=== PATIENT | male | born 1975 | race Native Hawaiian/Other Pacific Islander ===

== ENCOUNTER 2020-02-08 15:57 | Inpatient (IN) | payer MEDICAID ==
[~2020-02-08] VITALS: Ht 185.4 cm; Wt 199.3 kg
[2020-02-08] MEDS ORDERED: cloNIDine HCL 0.1 MG TAB PO ONE (16:30)
[2020-02-08 16:57] LABS: Basophils # (auto) 0.1 10 ^3/uL (0-0.2); Hemoglobin 12.2 g/dL (13.5-17.5); Lymphocytes % (auto) 19.1 % (10.0-50.0); Monocytes # (auto) 0.9 10 ^3/uL (0-1.3); Neutrophils # (auto) 7.4 10 ^3/uL (1.6-8.6); Nucleated Red Blood Cells % 0.1 %; Red Cell Distribution Width 15.5 % (11.8-14.3); White Blood Cell 10.6 10^3/uL (4.4-10.8)
[2020-02-08 16:59] LABS: Eosinophils # (auto) 0.2 10 ^3/uL (0-0.8); Eosinophils % (auto) 2.3 % (0.0-7.0); Hematocrit 37.8 % (41.0-53.0); Mean Corpuscular Hemoglobin 28.4 pg (28.0-32.0); Mean Corpuscular Hgb Conc. 32.4 g/dL (32.0-36.0); Mean Corpuscular Volume 87.8 fL (80.0-100.0); Monocytes % (auto) 8.2 % (0.0-12.0); Neutrophils % (auto) 69.4 % (37.0-80.0); Platelet Count (auto) 401 10^3/uL (140-450); Red Blood Cells 4.31 10^6/uL (4.5-5.90)
[2020-02-08 17:15] LABS: Albumin 1.5 g/dL (3.4-5.0); Calcium 7.5 mg/dL (8.5-10.1)
[2020-02-08 17:22] LABS: BUN/Creatinine Ratio 5.9; Bilirubin, Total 0.4 mg/dL (0.2-1.0); Total Protein 6.3 g/dL (6.4-8.2)
[2020-02-08] MEDS ORDERED: FUROSEMIDE 40 MG/4 ML VIAL IV ONE (17:45)
[2020-02-08] MEDS ORDERED: DOCUSATE SOD 100 MG CAP PO PRN (21:45)
[2020-02-08] MEDS ORDERED: MORPHINE SULF INJ 2 MG/ML SYRINGE 1ML IV PRN (21:45)
[2020-02-08] MEDS ORDERED: MORPHINE SULFATE 4 MG/ML SYR/VIAL IV PRN (21:45)
[2020-02-08] MEDS ORDERED: ONDANSETRON HCL 4 MG/2 ML VIAL IV PRN (21:45)
[2020-02-08] MEDS ORDERED: NITROGLYCERIN 0.4 MG SL TAB SL PRN (21:45)
[2020-02-08] MEDS ORDERED: ACETAMINOPHEN 325 MG TAB PO PRN (21:45)
[2020-02-08] MEDS ORDERED: CARVEDILOL 3.125 MG TAB PO SCH (22:00)
[2020-02-08] MEDS ORDERED: DEXTROSE (50%) 50ML SYRG IV PRN (22:00)
[2020-02-08] MEDS: SODIUM CHLOR 0.9% PF (SALINE LOCK) 10ML VIAL/SYR IV SCH (22:13)
[2020-02-08] MEDS: ACCU-CHEK COMFORT CURVE STRIP VI SCH (22:13)
[2020-02-08] MEDS: hydrALAZINE HCL 25 MG TAB PO SCH (22:13)
[2020-02-08] MEDS: InsuLIN REG 1unit/0.01ml Soln (100units/ml) SC SCH (22:13)
[2020-02-08 23:30] VITALS: BP 157/92
[2020-02-09] MEDS: ENOXAPARIN SOD 40 MG/0.4 ML SYRINGE SC SCH ×2 (03:40→21:14)
[2020-02-09 05:00] VITALS: BP 154/87
[2020-02-09] MEDS: FUROSEMIDE 40 MG/4 ML VIAL IV SCH ×2 (05:28→17:27)
[2020-02-09] MEDS: hydrALAZINE HCL 25 MG TAB PO SCH ×2 (05:28→21:35)
[2020-02-09] MEDS: SODIUM CHLOR 0.9% PF (SALINE LOCK) 10ML VIAL/SYR IV SCH ×3 (06:23→21:51)
[2020-02-09] MEDS: ACCU-CHEK COMFORT CURVE STRIP VI SCH ×4 (06:24→21:15)
[2020-02-09] MEDS: InsuLIN REG 1unit/0.01ml Soln (100units/ml) SC SCH ×4 (06:24→21:15)
[2020-02-09 06:57] LABS: Basophils # (auto) 0.2 10 ^3/uL (0-0.2); Basophils % (auto) 1.6 % (0.0-2.0); Eosinophils # (auto) 0.5 10 ^3/uL (0-0.8); Eosinophils % (auto) 5.4 % (0.0-7.0); Hematocrit 39.5 % (41.0-53.0); Hemoglobin 12.6 g/dL (13.5-17.5); Lymphocytes # (auto) 2.9 10 ^3/uL (0.4-5.4); Lymphocytes % (auto) 28.4 % (10.0-50.0); Mean Corpuscular Hemoglobin 28.2 pg (28.0-32.0); Mean Corpuscular Hgb Conc. 31.8 g/dL (32.0-36.0); Mean Corpuscular Volume 88.7 fL (80.0-100.0); Monocytes % (auto) 10.2 % (0.0-12.0); Neutrophils # (auto) 5.5 10 ^3/uL (1.6-8.6); Neutrophils % (auto) 54.4 % (37.0-80.0); Nucleated Red Blood Cells % 0.1 %; Platelet Count (auto) 365 10^3/uL (140-450); Red Blood Cells 4.46 10^6/uL (4.5-5.90); Red Cell Distribution Width 15.6 % (11.8-14.3); White Blood Cell 10.1 10^3/uL (4.4-10.8)
[2020-02-09 07:14] LABS: Potassium 3.9 mmol/L (3.5-5.1)
[2020-02-09 07:24] LABS: Albumin 1.6 g/dL (3.4-5.0); BUN/Creatinine Ratio 5.6; Bilirubin, Total 0.5 mg/dL (0.2-1.0); Calcium 7.6 mg/dL (8.5-10.1); Total Protein 6.4 g/dL (6.4-8.2)
[2020-02-09 08:40] VITALS: BP 160/97
[2020-02-09] MEDS: CARVEDILOL 3.125 MG TAB PO SCH ×2 (09:34→17:28)
[2020-02-09] MEDS ORDERED: amLODIPine BESYLATE 5 MG TAB PO SCH (10:00)
[2020-02-09] MEDS ORDERED: PANTOPRAZOLE 40 MG/10 ML VIAL INJ IV SCH (10:00)
[2020-02-09] MEDS ORDERED: ENOXAPARIN SOD 40 MG/0.4 ML SYRINGE SC SCH (10:00)
[2020-02-09] MEDS ORDERED: OPTISON 3ml Vial for INJ IV ONE (11:55)
[2020-02-09 13:00] VITALS: BP 149/85
[2020-02-09] MEDS ORDERED: hydrALAZINE HCL 25 MG TAB PO SCH (14:00)
[2020-02-09 14:47] LABS: Alcohol, Urine < 3.0 mg/dL (0-10); Amphetamine Screen, Urine NEGATIVE (NEGATIVE); Barbiturate Scree,Urine NEGATIVE (NEGATIVE); Benzodiazephine Screen, Urine NEGATIVE (NEGATIVE); Cannabinoid Screen, Urine NEGATIVE (NEGATIVE); Cocaine Screen, Urine NEGATIVE (NEGATIVE); Opiate Scree,Urine NEGATIVE (NEGATIVE); Phencyclidine Screen, Urine NEGATIVE (NEGATIVE)
[2020-02-09 16:20] LABS: Phosphorus 4.5 mg/dL (2.5-4.90); Uric Acid 9.2 mg/dL (3.5-7.2)
[2020-02-09 16:22] LABS: Urine Bacteria FEW /hpf (None Seen); Urine Blood 2+ /uL (Negative); Urine WBC 1 /hpf (0 - 3)
[2020-02-09 16:25] LABS: Protein, Urine 491.4 mg/dL (0.0-11.9)
[2020-02-09 16:44] VITALS: BP 158/100
[2020-02-09 22:00] VITALS: BP 140/97
[2020-02-10 05:00] VITALS: BP 159/95
[2020-02-10] MEDS: hydrALAZINE HCL 25 MG TAB PO SCH ×2 (05:38→12:08)
[2020-02-10] MEDS: FUROSEMIDE 40 MG/4 ML VIAL IV SCH (05:38)
[2020-02-10] MEDS: InsuLIN REG 1unit/0.01ml Soln (100units/ml) SC SCH ×2 (06:03→11:06)
[2020-02-10] MEDS: ACCU-CHEK COMFORT CURVE STRIP VI SCH ×2 (06:03→11:06)
[2020-02-10] MEDS: SODIUM CHLOR 0.9% PF (SALINE LOCK) 10ML VIAL/SYR IV SCH ×2 (06:03→11:06)
[2020-02-10 06:43] LABS: Basophils # (auto) 0.1 10 ^3/uL (0-0.2); Basophils % (auto) 1.6 % (0.0-2.0); Eosinophils # (auto) 0.6 10 ^3/uL (0-0.8); Eosinophils % (auto) 6.4 % (0.0-7.0); Hematocrit 39.7 % (41.0-53.0); Hemoglobin 12.6 g/dL (13.5-17.5); Lymphocytes # (auto) 2.3 10 ^3/uL (0.4-5.4); Lymphocytes % (auto) 25.7 % (10.0-50.0); Mean Corpuscular Hgb Conc. 31.7 g/dL (32.0-36.0); Mean Corpuscular Volume 88.3 fL (80.0-100.0); Monocytes # (auto) 0.9 10 ^3/uL (0-1.3); Monocytes % (auto) 9.8 % (0.0-12.0); Neutrophils % (auto) 56.5 % (37.0-80.0); Nucleated Red Blood Cells % 0.2 %; Platelet Count (auto) 399 10^3/uL (140-450); Red Cell Distribution Width 15.9 % (11.8-14.3); White Blood Cell 8.8 10^3/uL (4.4-10.8)
[2020-02-10 07:03] LABS: Calcium 7.4 mg/dL (8.5-10.1)
[2020-02-10 07:10] LABS: Albumin 1.6 g/dL (3.4-5.0); BUN/Creatinine Ratio 5.8; Bilirubin, Total 0.4 mg/dL (0.2-1.0); Magnesium 2.2 mg/dL (1.6-2.6); Total Protein 6.6 g/dL (6.4-8.2)
[2020-02-10 09:00] VITALS: BP 151/87
[2020-02-10] MEDS: CARVEDILOL 3.125 MG TAB PO SCH (09:17)
[2020-02-10] MEDS: ENOXAPARIN SOD 40 MG/0.4 ML SYRINGE SC SCH (09:18)
[2020-02-10] MEDS ORDERED: PANTOPRAZOLE 40 MG TAB PO SCH (10:00)
[2020-02-10 13:00] VITALS: BP 174/88
[2020-02-10 13:51] VITALS: BP 148/87
[2020-02-13 08:06] LABS: Immunoglobulin G, Serum 1659 mg/dL (603-1613)
== END 2020-02-10 15:35 | disposition home or self-care (01) | DRG 194 ==
LOC: ER 15:57 → TELE 15:58 → TELE-WESTW 23:25
PROVIDERS: ADMIT Nurse Practitioner Family; ATTEND Internal Medicine
DX: I13.0 Hypertensive heart and chronic kidney disease with heart failure and stage 1 through stage 4 chronic kidney disease, or unspecified chronic kidney disease (principal); N17.0 Acute kidney failure with tubular necrosis; I50.33 Acute on chronic diastolic (congestive) heart failure; E66.01 Morbid (severe) obesity due to excess calories; Z68.43 Body mass index [BMI] 50.0-59.9, adult; E11.65 Type 2 diabetes mellitus with hyperglycemia; D63.1 Anemia in chronic kidney disease; E11.22 Type 2 diabetes mellitus with diabetic chronic kidney disease; F12.90 Cannabis use, unspecified, uncomplicated; F32.9 Major depressive disorder, single episode, unspecified; I16.1 Hypertensive emergency; R06.03 Acute respiratory distress; N18.9 Chronic kidney disease, unspecified; E88.09 Other disorders of plasma-protein metabolism, not elsewhere classified; Z79.4 Long term (current) use of insulin; Z87.891 Personal history of nicotine dependence; Z80.9 Family history of malignant neoplasm, unspecified; Z82.49 Family history of ischemic heart disease and other diseases of the circulatory system; Z83.3 Family history of diabetes mellitus; Z91.14 Patient's other noncompliance with medication regimen; Z91.19 Patient's noncompliance with other medical treatment and regimen; Z79.899 Other long term (current) drug therapy
CPT/HCPCS: 36415; 71045; 76775; 80053; 80061; 80307; 81001; 82306; 82570; 82784; 82962; 83036; 83735; 83880; 83970; 84100; 84156; 84300; 84443; 84484; 84550; 85025; 86334; 86335; 93005; 93306; 96374; 99291; C9113; G0378; Q9956

== ENCOUNTER 2020-03-01 03:30 | Inpatient (IN) | payer MEDICAID ==
[~2020-03-01] VITALS: Ht 182.9 cm; Wt 180.0 kg
[2020-03-01 04:38] LABS: Basophils # (auto) 0 10 ^3/uL (0-0.2); Basophils % (auto) 0.3 % (0.0-2.0); Eosinophils # (auto) 0 10 ^3/uL (0-0.8); Eosinophils % (auto) 0.1 % (0.0-7.0); Lymphocytes # (auto) 2.1 10 ^3/uL (0.4-5.4); Lymphocytes % (auto) 28.5 % (10.0-50.0); Mean Corpuscular Hemoglobin 27.6 pg (28.0-32.0); Mean Corpuscular Hgb Conc. 32.1 g/dL (32.0-36.0); Mean Corpuscular Volume 85.9 fL (80.0-100.0); Monocytes # (auto) 0.6 10 ^3/uL (0-1.3); Monocytes % (auto) 8.5 % (0.0-12.0); Neutrophils # (auto) 4.7 10 ^3/uL (1.6-8.6); Neutrophils % (auto) 62.6 % (37.0-80.0); Nucleated Red Blood Cells % 0.2 %; Platelet Count (auto) 232 10^3/uL (140-450); Red Blood Cells 3.61 10^6/uL (4.5-5.90); Red Cell Distribution Width 14.9 % (11.8-14.3); White Blood Cell 7.4 10^3/uL (4.4-10.8)
[2020-03-01] MEDS ORDERED: methylPREDNISolone SOD SUCC 125 MG/2 ML VL IV ONE (04:45)
[2020-03-01 04:54] LABS: INR 1.07 (0.9-1.15); Partial Thromboplastin Time 37.3 sec (23.0-31.2)
[2020-03-01 05:02] LABS: Albumin 1.5 g/dL (3.4-5.0)
[2020-03-01 05:04] LABS: BUN/Creatinine Ratio 12.5
[2020-03-01 05:09] LABS: Bilirubin, Total 0.5 mg/dL (0.2-1.0); Total Protein 6.1 g/dL (6.4-8.2)
[2020-03-01] MEDS ORDERED: SODIUM ZIRCONIUM CYCL 10 GM PAK PO ONE ×2 (05:30→16:00)
[2020-03-01] MEDS ORDERED: InsuLIN REG 1unit/0.01ml Soln (100units/ml) IV ONE ×2 (05:30→16:00)
[2020-03-01] MEDS ORDERED: SODIUM BICARBONATE 8.4 % INJ 50ML VIAL IV ONE (05:30)
[2020-03-01] MEDS ORDERED: CALCIUM GLUC 4.65meq/50ml D5AE 50 ML IV ONE (05:30)
[2020-03-01] MEDS ORDERED: DEXTROSE (50%) 50ML SYRG IV ONE ×2 (05:30→16:00)
[2020-03-01 10:00] VITALS: BP 148/84
[2020-03-01] MEDS ORDERED: ENOXAPARIN SOD 40 MG/0.4 ML SYRINGE SC SCH ×2 (10:00)
[2020-03-01] MEDS ORDERED: MORPHINE SULF INJ 2 MG/ML SYRINGE 1ML IV PRN ×3 (10:00→16:00)
[2020-03-01] MEDS ORDERED: NITROGLYCERIN 0.4 MG SL TAB SL PRN ×2 (10:00→16:00)
[2020-03-01] MEDS ORDERED: SODIUM CHLORIDE 0.9% 1,000 ML IV SCH (10:00)
[2020-03-01] MEDS ORDERED: ENOXAPARIN SOD 30 MG/0.3 ML SYRINGE SC SCH (10:00)
[2020-03-01] MEDS ORDERED: ACETAMINOPHEN 500 MG TAB PO PRN (10:00)
[2020-03-01] MEDS: DexAMETHasone SOD PHOS 10MG/1ML VIAL INJ IV SCH (10:29)
[2020-03-01] MEDS: ASCORBIC ACID 1,000 MG TAB PO SCH (10:30)
[2020-03-01] MEDS: CHOLECALCIFEROL (VITD3) 2,000 UNIT CAP PO SCH (10:30)
[2020-03-01] MEDS: DOXYCYCLINE 100MG/250ML 250 ML IV SCH ×2 (10:30→23:24)
[2020-03-01] MEDS: ZINC SULFATE 220mg CAP or TAB PO SCH (10:30)
--- NOTE | 2020-03-01 10:58 | NUR ---
Telemetry admit from ER [facility] ANN admitted to Telemetry unit after SBAR received. Patient oriented to REID CHEUNG RN primary RN, unit, room, bed, and unit policies regarding patient care and visiting hours. Patient now on continuous telemetry monitoring, tele box #4 and telemetry reading on arrival to unit is sr with peaked T waves. Patient placed on bedside oxygen, weighed by bedscale and encouraged to call if they need something. All questions and concerns addressed, patient verbalized understanding.
[2020-03-01] MEDS ORDERED: LACTATED RINGER'S 1,000 ML IV ONE (11:00)
[2020-03-01] MEDS ORDERED: ENOXAPARIN SOD 100 MG/1 ML SYRINGE SC ONE (11:00)
[2020-03-01 11:15] LABS: Basophils # (auto) 0 10 ^3/uL (0-0.2); Basophils % (auto) 0.3 % (0.0-2.0); Eosinophils # (auto) 0 10 ^3/uL (0-0.8); Eosinophils % (auto) 0.1 % (0.0-7.0); Hematocrit 30.2 % (41.0-53.0); Hemoglobin 9.7 g/dL (13.5-17.5); Lymphocytes # (auto) 1.2 10 ^3/uL (0.4-5.4); Lymphocytes % (auto) 25.6 % (10.0-50.0); Mean Corpuscular Hemoglobin 27.4 pg (28.0-32.0); Mean Corpuscular Hgb Conc. 32.1 g/dL (32.0-36.0); Mean Corpuscular Volume 85.4 fL (80.0-100.0); Monocytes # (auto) 0.1 10 ^3/uL (0-1.3); Monocytes % (auto) 2.5 % (0.0-12.0); Neutrophils # (auto) 3.4 10 ^3/uL (1.6-8.6); Neutrophils % (auto) 71.5 % (37.0-80.0); Nucleated Red Blood Cells % 0.2 %; Platelet Count (auto) 243 10^3/uL (140-450); Red Blood Cells 3.53 10^6/uL (4.5-5.90); Red Cell Distribution Width 14.4 % (11.8-14.3); White Blood Cell 4.8 10^3/uL (4.4-10.8)
[2020-03-01] MEDS ORDERED: ENOXAPARIN SOD 120 MG/0.8 ML SYRINGE SC ONE (11:15)
--- NOTE | 2020-03-01 11:15 | NUR ---
MD LAMAS CONTACT NEW ORDERS RECEIVED. RN TO IMPLEMENT NEW ORDERS PER PROTOCAL
[2020-03-01 11:48] LABS: Albumin 1.5 g/dL (3.4-5.0); BUN/Creatinine Ratio 14.8; Bilirubin, Total 0.5 mg/dL (0.2-1.0); CRP High Sensitivity 3.72 mg/dL (< 0.3); Calcium 6.2 mg/dL (8.5-10.1); Magnesium 2.1 mg/dL (1.6-2.6); Total Protein 6.2 g/dL (6.4-8.2)
[2020-03-01 11:50] LABS: Potassium 6.7 mmol/L (3.5-5.1)
[2020-03-01] MEDS ORDERED: GLIP2.5T28 PO (11:55)
[2020-03-01] MEDS ORDERED: LISI-275 PO (11:55)
[2020-03-01] MEDS ORDERED: FURO40TA4 PO (11:55)
[2020-03-01] MEDS ORDERED: HYDR50TA15 PO (11:55)
[2020-03-01] MEDS ORDERED: ROSU10TA16 PO (11:55)
[2020-03-01] MEDS ORDERED: CARV6.2551 PO (11:55)
[2020-03-01] MEDS ORDERED: POTA-180 PO (11:55)
[2020-03-01] MEDS ORDERED: FUROSEMIDE 100 MG/10ML VIAL IV ONE (13:00)
--- NOTE | 2020-03-01 13:02 | NUR ---
Patient Fall Patient yelling for help and found by SELMA Snider with back against bathroom door frame. Patient states "I was just going to the bathroom to rinse myself off and the water got on the floor so when I went to go back to my bed I slipped on the water and fell on my but and slid down the door, I started to get dizzy also so that didn't help" physical therapy so patient can be trans-ported back to bed. physical therapy arrived to the room with trina lift. Patient transported to bed with trina lift, patient complaining of lower back and butt pain at this time. MD Ornelas paged. awaiting call back. fish and wildlife biologist Brett made aware. Patient moved to room 232 for safety. Patient re-educated contact lens fitter light, fall precautions and safety measures.
--- NOTE | 2020-03-01 14:05 | NUR ---
RETURNED PAGE NEW ORDER RECIEVED. WILL IMPLEMENT NEW ORDERS PER PROTOCAL
[2020-03-01] MEDS ORDERED: ALBUTEROL SULF 2.5 MG/0.5ML(0.5%) NEB SOLN NEB ONE (16:00)
[2020-03-01] MEDS ORDERED: FUROSEMIDE 40 MG/4 ML VIAL IV ONE (16:00)
[2020-03-01] MEDS ORDERED: CALCIUM CHL 100MG/ML 1,000 MG in D5W 5% 100 ML IV ONE (16:00)
[2020-03-01] MEDS ORDERED: LORazepam 0.5 MG TAB PO PRN (16:00)
[2020-03-01] MEDS ORDERED: DEXTROSE (50%) 50ML SYRG IV PRN (16:00)
[2020-03-01] MEDS ORDERED: SODIUM BICARBONATE 8.4% INJ 50ML SYRINGE IV ONE (16:00)
[2020-03-01] MEDS ORDERED: HYDROcodone-ACET 5/325MG TAB PO PRN (16:00)
[2020-03-01] MEDS ORDERED: ALUM & MAG HYDROX-SIMETH LIQ(MAALOX) 30 ML PO PRN (16:00)
[2020-03-01] MEDS ORDERED: ACETAMINOPHEN 325 MG TAB PO PRN (16:00)
[2020-03-01] MEDS ORDERED: DOCUSATE SOD 100 MG CAP PO PRN (16:00)
[2020-03-01] MEDS ORDERED: ONDANSETRON HCL 4 MG/2 ML VIAL IV PRN (16:00)
[2020-03-01] MEDS ORDERED: THIAMINE 100mg/ml INJ (200mg/2ml VIAL) IV ONE (16:30)
[2020-03-01] MEDS ORDERED: hydrALAZINE HCL 20 MG/ML VL IV PRN (16:30)
[2020-03-01] MEDS ORDERED: ATORVASTATIN 20 MG TAB PO ONE (16:45)
[2020-03-01] MEDS: SODIUM ZIRCONIUM CYCL 10 GM PAK PO SCH ×2 (16:49→23:28)
--- NOTE | 2020-03-01 16:58 | NUR ---
IV insertion IV access obtained, via clean sterile technique by inserting gauge catheter at after 6 attempt(s) Three different nurses. IV secured properly. No trauma to site. Patient tolerated well.
[2020-03-01 17:00] VITALS: BP 156/89
[2020-03-01] MEDS: ACCU-CHEK COMFORT CURVE STRIP VI SCH ×2 (17:00→22:57)
[2020-03-01 17:25] LABS: Cholesterol 67 mg/dL (< 200)
[2020-03-01 17:28] LABS: HDL Cholesterol 22 mg/dL (40-59); LDL Cholesterol 41 mg/dL (< 100); Triglycerides 118 mg/dL (< 150)
--- NOTE | 2020-03-01 17:30 | NUR ---
Haile catheter insertion Patient assessed and determined to be in need of haile catheter. Order obtained from CYDNEY CHANEY. Patient educated on catheter and reason for insertion. All questions answered. Haile catheter 16 guage Nepali inserted with clean sterile technique. Patient tolerated well.
[2020-03-01] MEDS: FUROSEMIDE 100 MG/10ML VIAL IV SCH (17:37)
[2020-03-01] MEDS: InsuLIN REG 1unit/0.01ml Soln (100units/ml) SC SCH ×2 (17:53→23:01)
[2020-03-01 18:33] LABS: Urine Bacteria FEW /hpf (None Seen); Urine Blood 1+ /uL (Negative); Urine Specific Gravity 1.013 (1.001-1.035); Urine WBC <1 /hpf (0 - 3)
[2020-03-01 18:52] LABS: Protein, Urine 459.1 mg/dL (0.0-11.9)
[2020-03-01 19:08] LABS: Alcohol, Urine < 3.0 mg/dL (0-10); Amphetamine Screen, Urine NEGATIVE (NEGATIVE); Barbiturate Scree,Urine NEGATIVE (NEGATIVE); Benzodiazephine Screen, Urine NEGATIVE (NEGATIVE); Cannabinoid Screen, Urine NEGATIVE (NEGATIVE); Cocaine Screen, Urine NEGATIVE (NEGATIVE); Opiate Scree,Urine NEGATIVE (NEGATIVE); Phencyclidine Screen, Urine NEGATIVE (NEGATIVE)
[2020-03-01 19:20] LABS: Potassium 5.8 mmol/L (3.5-5.1)
--- NOTE | 2020-03-01 19:29 | NUR ---
PAGED SCRIPT DEVELOPER HOSPITALIST RE: POTASSIUM 5.8 AWAITING CALL BACK
--- NOTE | 2020-03-01 19:32 | NUR ---
MD BUTLER RETURNED CALL NO NEW ORDERS RECEIVED AT THIS TIME
[2020-03-01 22:00] VITALS: BP 102/57
[2020-03-01] MEDS ORDERED: ENOXAPARIN SOD 100 MG/1 ML SYRINGE SC SCH (22:00)
[2020-03-01] MEDS ORDERED: SODIUM ZIRCONIUM CYCL 10 GM PAK PO SCH (22:00)
[2020-03-01] MEDS: BUDESONIDE (INHALATION) 180 MCG IH IN SCH (22:15)
[2020-03-01] MEDS: ALBUTEROL SULF HFA 90MCG INH 200DOSE IN SCH (22:15)
--- NOTE | 2020-03-01 22:15 | NUR ---
Respiratory note: PLACED PT ON 7L OXYMIZER AT THIS TIME
[2020-03-01] MEDS: CARVEDILOL 3.125 MG TAB PO SCH (23:27)
[2020-03-02] VITALS (21 sets, daily range): BP systolic 98–156; BP diastolic 48–89
[2020-03-02] MEDS: SODIUM BICARBONATE 50ML VIAL 50 ML in SOD CHL 0.45% 1,000 ML IV SCH ×3 (00:30→15:00)
[2020-03-02] MEDS: SODIUM ZIRCONIUM CYCL 10 GM PAK PO SCH ×2 (05:48→14:00)
[2020-03-02] MEDS: FUROSEMIDE 100 MG/10ML VIAL IV SCH ×2 (05:49→17:39)
[2020-03-02] MEDS: ACCU-CHEK COMFORT CURVE STRIP VI SCH ×4 (05:49→22:50)
[2020-03-02] MEDS: InsuLIN REG 1unit/0.01ml Soln (100units/ml) SC SCH ×4 (06:10→23:00)
[2020-03-02] MEDS: BUDESONIDE (INHALATION) 180 MCG IH IN SCH ×2 (07:06→20:17)
[2020-03-02] MEDS: ALBUTEROL SULF HFA 90MCG INH 200DOSE IN SCH ×3 (07:06→20:17)
[2020-03-02 07:14] LABS: Basophils # (auto) 0 10 ^3/uL (0-0.2); Basophils % (auto) 0.2 % (0.0-2.0); Eosinophils # (auto) 0 10 ^3/uL (0-0.8); Lymphocytes % (auto) 22.1 % (10.0-50.0)
[2020-03-02 07:17] LABS: Hematocrit 21.3 % (41.0-53.0); Lymphocytes # (auto) 2.6 10 ^3/uL (0.4-5.4); Mean Corpuscular Hgb Conc. 31.5 g/dL (32.0-36.0); Mean Corpuscular Volume 85.6 fL (80.0-100.0); Monocytes # (auto) 0.6 10 ^3/uL (0-1.3); Monocytes % (auto) 4.9 % (0.0-12.0); Neutrophils # (auto) 8.5 10 ^3/uL (1.6-8.6); Neutrophils % (auto) 72.8 % (37.0-80.0); Nucleated Red Blood Cells % 0.2 %; Platelet Count (auto) 315 10^3/uL (140-450); Red Blood Cells 2.49 10^6/uL (4.5-5.90); White Blood Cell 11.7 10^3/uL (4.4-10.8)
[2020-03-02 07:22] LABS: Potassium 5.2 mmol/L (3.5-5.1)
[2020-03-02 07:27] LABS: Albumin 1.3 g/dL (3.4-5.0); BUN/Creatinine Ratio 16.8; Calcium 6.3 mg/dL (8.5-10.1)
[2020-03-02 07:37] LABS: Hemoglobin 6.7 g/dL (13.5-17.5)
[2020-03-02 07:38] LABS: Bilirubin, Total 0.5 mg/dL (0.2-1.0); Total Protein 5.1 g/dL (6.4-8.2)
--- NOTE | 2020-03-02 08:00 | NUR ---
REGARDING CRITICAL HGB: PAGED AND SPOKE TO ON-CALL HOSPITALIST Tejinder WALDEN REGARDING CRITICAL HGB. RECEIVED NEW ORDERS. WILL FOLLOW THROUGH.
--- NOTE | 2020-03-02 08:27 | NUR ---
JOSE LAMAS REGARDING CRITICAL BUN. AWAITING CALL BACK.
--- NOTE | 2020-03-02 09:33 | NUR ---
IV INSERTION: OBTAINED LFA 20 GAUGE IV ON FIRST ATTEMPT AND LFA 20 GAUGE IV ON FIRST ATTEMPT. PATIENT TOLERATED WELL.
--- NOTE | 2020-03-02 09:41 | NUR ---
REPAGED NEPHROLOGY FOR CRITICAL BUN. AWAITING CALL BACK.
[2020-03-02] MEDS: DexAMETHasone SOD PHOS 10MG/1ML VIAL INJ IV SCH (09:46)
[2020-03-02] MEDS: CHOLECALCIFEROL (VITD3) 2,000 UNIT CAP PO SCH (09:47)
[2020-03-02] MEDS: ZINC SULFATE 220mg CAP or TAB PO SCH (09:47)
[2020-03-02] MEDS: ASCORBIC ACID 1,000 MG TAB PO SCH (09:47)
[2020-03-02] MEDS: DOXYCYCLINE 100MG/250ML 250 ML IV SCH (09:47)
[2020-03-02] MEDS: CARVEDILOL 3.125 MG TAB PO SCH (09:48)
[2020-03-02] MEDS ORDERED: ENOXAPARIN SOD 150 MG/1 ML SYRINGE SC SCH (10:00)
[2020-03-02] MEDS ORDERED: THIAMINE 100mg/ml INJ (200mg/2ml VIAL) IV SCH (10:00)
--- NOTE | 2020-03-02 10:07 | NUR ---
SPOKE TO Tejinder LAMAS REGARDING TRENDING BUN AND CREATINE. INSTRUCTED TO OBTAIN CONSENTS FOR CHERYL CATH AND DIALYSIS. ALSO RECEIVED ORDERS FOR LASIX 80MG IV ONCE AFTER BLOOD TRANSFUSION.
[2020-03-02] MEDS ORDERED: ALBUMIN 25% 100 ML IV PRN (10:15)
[2020-03-02] MEDS ORDERED: SODIUM CHL 0.9% 1000 ML BAG XX ONE (10:15)
--- NOTE | 2020-03-02 10:58 | NUR ---
JOSE HOSPITALIST REGARDING PATIENT LOOSING VISION AFTER HD (03/01) PATIENT REPORTS DECREASE IN HIS VISION, ON ASSESSMENT PATIENT IS ABLE TO SEE LIGHT, IDENTIFIED CORRECT NUMBER OF FINGERS. UNABLE TO TURN HIS EYES SIDE TO SIDE. ON ASSESSMENT HE CAN NOT MOVE HIS LEFT ARM, OR HIS LEFT FOOT. Addendum: 03/02/20 at 6165 by MOISE EDWARDS RN WRONG TIME
--- NOTE | 2020-03-02 11:35 | NUR ---
Tejinder ROUNDING: Tejinder MCCLURE AT BEDSIDE. INFORMED OF PATIENTS BLACK TARRY STOOL REPORTED BY NOC RN. INFORMED OF CRITICAL HGB AND OF PATIENTS COMPLAINTS OF BLURRY VISION. SEE EMR FOR NEW ORDERS.
--- NOTE | 2020-03-02 12:30 | NUR ---
SPOKE TO Tejinder RODRIGUEZ ABOUT PENDING CHERYL CATHETER INSERTION. INFORMED ALL MATERIALS REQUESTED BY Tejinder ARE AT BEDSIDE. Tejinder STATED HE WILL BE UP SHORTLY.
[2020-03-02] MEDS ORDERED: ACETAMINOPHEN 325 MG TAB PO PRN (15:30)
--- NOTE | 2020-03-02 15:42 | NUR ---
Tejinder RODRIGUEZ AT BEDSIDE TO INSERT TUJUNGA CORRINE.
--- NOTE | 2020-03-02 15:47 | NUR ---
CALLED AND SPOKE TO JOSÉ MANUEL Parham [facility] TO INFORM LISA JOYDISPLAY DECORATOR PATIENT HAS ACCESS AND IS READY FOR DIALYSIS.
[2020-03-02] MEDS ORDERED: FUROSEMIDE 100 MG/10ML VIAL IV ONE (17:30)
--- NOTE | 2020-03-02 18:55 | NUR ---
Respiratory note: ENTERED ROOM FOR MDI TXS. PT FOUND ALTERED, COVERED IN BLACK TARRY STOOL. PT IS UNABLE TO SQUEEZE HAND OR ANSWER QUESTIONS, NOT TRACKING WITH EYES, UNABLE TO FOCUS, MOANING. PT RECEIVING DIALYSIS, RESIDENTIAL ROOFER AT BEDSIDE, STATES PTS MENTATION HAS BEEN LIKE THAT SINCE HE CAME IN, HAS BEEN IN ROOM APPROX 3HRS. SPO2 95% ON 12L OXYMIZER, HR 89, RR 24. SPOKE WITH PTS NURSE AT NURSES STATION REGARDING PT AND PTS BASELINE, RN STATES PT WAS ABLE TO HAVE CONVERSATIONS WITH HIM THIS MORNING. RN PAGED HOSPITALIST. RECEIVED CALL BACK FROM Carson HARTLEY N.P., ORDERED ABG 15-30MIN POST COMPLETION OF DIALYSIS AND TO UPGRADE PT TO ICU STATUS AND PLACE ON HFNC.
--- NOTE | 2020-03-02 19:20 | NUR ---
PATIENT NOTED TO BE NON-VERBAL BY RT. Guanako GARCIA. N.P. UP AT BEDSIDE TO SEE PATIENT. INFORMED PATIENT WAS A&O DURING MEDICATION PASS AT 1720. PATIENT NOTED TO HAVE BLACK TARRY STOOL AND SMALL AMOUNT OF OOZING BLOOD AT HORSESHOE BEND CATH SITE. RECEIVED NEW ORDERS FOR UPGRADE TO ICU.
--- NOTE | 2020-03-02 19:20 | NUR ---
Opening Shift Note Received report from sunil Tee RN. Assumed care of patient, awake and alert, pale,with shortness of breath. Patient is not responding at this time. Dialysis on going. Patient is also having bloody bowel movement and cliff cath is bleeding at the site. RT and hospitalist at bedside. Hospitalist ordered Randal to transfer patient to ICU.
--- NOTE | 2020-03-02 20:20 | NUR ---
2nd unit of blood transfusion started.
--- NOTE | 2020-03-02 20:22 | NUR ---
CALLED AND REPORT GIVEN TO RUFINO MAI.
--- NOTE | 2020-03-02 20:30 | NUR ---
CALLED AND SPOKE TO TO INFORM OF PATIENT STATUS.
--- NOTE | 2020-03-02 20:35 | NUR ---
Holding phone for patient while listening to while on the phone. Patient unable to hold the phone.
[2020-03-02] MEDS ORDERED: EPOETIN ALFA 10,000 UNIT/1 ML VIAL SC ONE (21:00)
--- NOTE | 2020-03-02 21:20 | NUR ---
Patient transferred to ICU with all personal belongings and one hour of blood transfusion.
--- NOTE | 2020-03-02 21:50 | NUR ---
HD CATH DRESSING CHANGED MODERATE BLEEDING FROM RIGHT HD CATH. TAYLOR Rausch CHANGED DRESSING USING ASEPTIC TECHNIQUE, BIO DISK APPLIED TO THE SIDE.
[2020-03-02] MEDS ORDERED: ATORVASTATIN 20 MG TAB PO SCH (22:00)
[2020-03-02] MEDS: METOPROLOL TARTRATE 25 MG TAB PO SCH (22:16)
[2020-03-02] MEDS: PANTOPRAZOLE 40 MG/10 ML VIAL INJ IV SCH (22:46)
--- NOTE | 2020-03-02 22:58 | NUR ---
PAGED HOSPITALIST REGARDING PATIENT REPORTING DECREASE IN HIS VISION AFTER HD (03/01) PATIENT REPORTS DECREASE IN HIS VISION, ON ASSESSMENT PATIENT IS ABLE TO SEE LIGHT, IDENTIFIED CORRECT NUMBER OF FINGERS. UNABLE TO TURN HIS EYES SIDE TO SIDE. ON ASSESSMENT HE CAN NOT MOVE HIS LEFT ARM, OR HIS LEFT FOOT.
--- NOTE | 2020-03-02 23:28 | NUR ---
PAGED HOSPITALIST SECOND TIME
--- NOTE | 2020-03-02 23:45 | NUR ---
PAGED HOSPITALIST THIRD TIME
--- NOTE | 2020-03-02 23:51 | NUR ---
HD CATH DRESSING CHANGED MODERATE BLEEDING FROM RIGHT HD CATH. ATYLOR Rausch CHANGED DRESSING USING ASEPTIC TECHNIQUE, BIO DISK APPLIED TO THE SIDE. Addendum: 03/03/20 at 0132 by MOISE EDWARDS RN WRONG TIME, ACTUAL TIME 0657
--- NOTE | 2020-03-02 23:55 | NUR ---
HOSPITALIST CALLED BACK RECEIVED NEW ORDERS _ CT OF HEAD WITHOUT CONTRAST
[2020-03-03] VITALS (42 sets, daily range): BP systolic 44–158; BP diastolic 22–87
--- NOTE | 2020-03-03 | NUR ---
PAGED EVS PER PROTOCOL NEED EVS PERSONEL DURING COVID PATIENT TRANSFER
--- NOTE | 2020-03-03 00:35 | NUR ---
TOOK PATIENT TO RADIOLOGY (CT HEAD) TRANSPORTED BY MOISE JOY, ALPA JOY, EVS PERSONAL. ON PORTABLE HEMODYNAMIC MONITOR, NON-REBREATHER MASK (SATURATING 100%) ACLS CODE BOX
--- NOTE | 2020-03-03 00:35 | NUR ---
PAGED RT FOUR TIMES SINCE MID NIGHT
--- NOTE | 2020-03-03 00:36 | NUR ---
EVS AT BEDSIDE
--- NOTE | 2020-03-03 01:00 | NUR ---
PATIENT BACK FROM RADIOLOGY (CT HEAD) TRANSPORTED BY MOISE JOY, ALPA JOY, EVS PERSONAL. ON PORTABLE HEMODYNAMIC MONITOR, NON-REBREATHER MASK (SATURATED SP02 100% TO RADIOLOGY AND BACK) ACLS CODE BOX PATIENT TOLERATED TRANSPORTATION WELL, VS WERE STABLE, HR 90'S, SPO2 100%, BP 123/64. AOX3. TOLERATED CT SCAN WELL.
[2020-03-03] MEDS: SODIUM BICARBONATE 50ML VIAL 50 ML in SOD CHL 0.45% 1,000 ML IV SCH (01:30)
--- NOTE | 2020-03-03 01:30 | NUR ---
HELD MEDICATION PER MD COMMUNICATION ORDER HELD SODIUM BICARB IV DRIP AT 0130
--- NOTE | 2020-03-03 03:52 | NUR ---
Respiratory note: RECEIVED PAGE ON RT PAGER 4 AT 0002 TO "PLEASE GO TO ICU". IMMEDIATELY CALLED ICU, SPOKE WITH ZAC CASTRO RN, WHO STATED PT NEEDS TO GO TO CT. INFORMED ZAC THAT PT CAN GO ON A NRB AT 15LPM PT WAS PREVIOUSLY ON A 12L OXYMIZER WITH SATS OF 97-98%. VERBALIZED UNDERSTANDING, NO FURTHER REQUESTS. CALLED PBX AT THIS TIME ([phone]), PBX OPERATORS STATE THERE WAS ONLY THE ONE PAGE TO PAGER 4 AT 0002, NO OTHER PAGES FOUND REGARDING THIS MATTER FOR PAGER 4 OR PAGER 2 PER PBX.
[2020-03-03 04:29] LABS: Hematocrit 18.6 % (41.0-53.0); Mean Corpuscular Hemoglobin 27.2 pg (28.0-32.0); Mean Corpuscular Hgb Conc. 31.7 g/dL (32.0-36.0); Mean Corpuscular Volume 85.9 fL (80.0-100.0); Platelet Count (auto) 273 10^3/uL (140-450); Red Blood Cells 2.17 10^6/uL (4.5-5.90); Red Cell Distribution Width 15.3 % (11.8-14.3); White Blood Cell 25.7 10^3/uL (4.4-10.8)
[2020-03-03 04:30] LABS: Hemoglobin 5.9 g/dL (13.5-17.5)
--- NOTE | 2020-03-03 04:30 | NUR ---
PAGED HOSPITALIST REGARDING CRITICAL VALUE: HGB 5.9
[2020-03-03 04:31] LABS: Band Neutrophils % (manual) 0; Basophils % (manual) 0 (0.0-2.0); Blast Cells 0; Eosinophils % (manual) 0 (0-7); Metamyelocytes % 0; Myelocytes % 0; Promyelocytes % 0; Reactive Lymphocytes 0
--- NOTE | 2020-03-03 04:36 | NUR ---
HOSPITALIST CALLED BACK (3 PRBC) RECEIVED NEW ORDERS - THREE PRBC FOR HGB OF 5.9
--- NOTE | 2020-03-03 04:38 | NUR ---
SPOKE WITH ABDIAZIZ (FAMILY) UPDATED ON PATIENTS STATUS AND POC. ALL QUESTIONS AND CONCERNS ADDRESSED. VERBALIZED UNDERSTANDING, STATED THAT SHE WILL CALL IN A MORNING FOR UPDATE.
[2020-03-03 04:46] LABS: Albumin 1.4 g/dL (3.4-5.0); Calcium 6.2 mg/dL (8.5-10.1); Potassium 4.7 mmol/L (3.5-5.1)
[2020-03-03 04:50] LABS: BUN/Creatinine Ratio 19.3; Bilirubin, Total 0.6 mg/dL (0.2-1.0); Total Protein 4.6 g/dL (6.4-8.2)
[2020-03-03 05:53] LABS: Lymphocytes % (manual) 5 (10.0-50.0); Monocytes % (manual) 1 (0-12)
[2020-03-03] MEDS: SODIUM ZIRCONIUM CYCL 10 GM PAK PO SCH ×2 (06:00)
--- NOTE | 2020-03-03 06:10 | NUR ---
PAGED HOSPITALIST REGARDING ALTERATION IN CONSCIOUSNESS, NOT ABLE TO ANSWER WHAT YEAR IT IS, OR TELL HIS OWN NAME, PATIENT JUST MOANS. REPORTED BUN AND CREATININE
[2020-03-03] MEDS: FUROSEMIDE 100 MG/10ML VIAL IV SCH (06:18)
--- NOTE | 2020-03-03 06:35 | NUR ---
HOSPITALIST PAGED BACK RECEIVED NEW ORDERS, GI AND NEUROLOGIST CONSULT.
[2020-03-03] MEDS: BUDESONIDE (INHALATION) 180 MCG IH IN SCH (06:58)
[2020-03-03] MEDS: ALBUTEROL SULF HFA 90MCG INH 200DOSE IN SCH (06:58)
[2020-03-03] MEDS: ACCU-CHEK COMFORT CURVE STRIP VI SCH (07:11)
[2020-03-03] MEDS: InsuLIN REG 1unit/0.01ml Soln (100units/ml) SC SCH (07:22)
--- NOTE | 2020-03-03 07:40 | NUR ---
REPORT REPORT RECEIVED FROM NIGHT RNMOISE. PT SLIGHTLY RESTLESS. VIEWED THROUGH GLASS SLIDING DOORS PT IS IN ISOLATION FOR +COVID .
--- NOTE | 2020-03-03 07:50 | NUR ---
PT TEACHING PT UNABLE TO BENEFIT FROM PT TEACHING HE IS NOT RESPONDING TO NAME AND NOT FOLLOWING ANY COMMANDS. Addendum: 03/03/20 at 1713 by Isbaela Michel RN Amended: Links added.
--- NOTE | 2020-03-03 07:50 | NUR ---
ASSESSMENT IN ISOLATION FOR + COVID. ENTERED ROOM PT HAS REMOVED HIS HIGH FLOW O2 AND DESATURATING QUICKLY. PT AWAKE AND RESTLESS. EYES OPEN BUT NO TRACKING AND DOES NOT RESPOND TO NAME. WITHDRAWS TO PAINFUL STIMULI. REAPPLIED HIGH FLOW O2 AND O2 SATS RETURNED TO 90% WITHIN 1-2 MINUTES. TRIED TO REASON WITH PT BUT HE STILL IS WITH EYES OPEN BUT NOT RESPONSIVE. APPLIED MITTEN TO HIS RIGHT HAND HE IS NOT MOVING HIS LEFT HAND. LUNGS CLEAR AND DIMINISHED THROUGHOUT BUT WITH EXPIRATORY RHONCHI IN THE UPPER LOBES ANTERIOR. NON PRODUCTIVE COUGH . ABD SOFT WITH PRESENT BOWEL SOUNDS. INCONTINENT OF SMALL AMOUNT OF LIQUID TARRY BM, UNABLE TO COLLECT SAMPLE FOR SOB IT ALL SOAKED INTO THE PAD. DIMA CARE PROVIDED AND PARTIAL LINEN CHANGE DONE. WOODS CATHETER DRAINING CLEAR YELLOW URINE. RIGHT FEMORAL HDX CATH WITH PRESSURE DRESSING IN PLACE. SMALL AMOUNT OF LEAKAGE NOTED AND REPLACED THE PRESSURE DRESSING. PT WITH H/H OF 5.9 AND 18.6. PT SCHEDULED FOR 3 UNITS OF PRBC AND ONE ALREADY GIVEN . PT DUE FOR STAT PTPTT AND WILL ADMINISTER NEXT UNIT OF PRBC AFTER BLOOD DRAWN. CONTINUE TO MONITOR.
--- NOTE | 2020-03-03 08:45 | NUR ---
PT AGAIN PULLED OFF HIS HIGH FLOW O2 WITH RAPID DESATURATION TO THE 70'S. ENTERED ROOM AND REAPPLIED HIGH FLOW O2. APPLIED A SOFT WRIST RESTRAINT TO THE RIGHT WRIST TO PREVENT PT PULLING HIS O2 OFF AGAIN. WILL NOTIFY
[2020-03-03 09:01] LABS: INR 1.2 (0.9-1.15); Partial Thromboplastin Time 30.5 sec (23.0-31.2)
--- NOTE | 2020-03-03 09:25 | NUR ---
PAGED DR MCCLURE TO UPDATE ON PT'S STATUS AND INFORM SOFT WRIST RESTRAINT APPLIED TO RIGHT WRIST PT HAS PULLED OFF HIGH FLOW 02 TWICE SINCE MY SHIFT STARTED AND HIS O2 SATS HAVE DROPPED TO THE 70'S BEFORE I AM ABLE TO PUT ON THE ISOLATION PPE AND GET TO THE BEDSIDE TO REAPPLY THE HIGH FLOW O2.
--- NOTE | 2020-03-03 09:35 | NUR ---
MD VISIT DR MCCLURE HERE IN THE ICU AND UPDATED ON THE PT'S CONDITION INCLUDING DROP IN H/H AND BLOOD PRODUCTS ORDERED. INCREASE IN THE WBC, PT PULLING OFF O2 WITH DESATURATION INTO THE 70'S AND RIGHT WRIST RESTRAINT APPLIED FOR PT SAFETY.
--- NOTE | 2020-03-03 09:37 | NUR ---
STARTED ON TRANSFUSION OF UNIT OF PRBC, UNIT # [id number].
[2020-03-03] MEDS ORDERED: ROCURONIUM 10MG/ML 10ML VIAL IV ONE (09:46)
[2020-03-03] MEDS ORDERED: ETOMIDATE (2MG/ML) 20ML VIAL IV ONE (09:47)
[2020-03-03] MEDS ORDERED: SUCCINYLCHOLINE CHLORIDE 20 MG/ML 10ML VIAL IV ONE (09:47)
[2020-03-03] MEDS ORDERED: MIDAZOLAM HCL 5 MG/ML-1ML VIAL ONE ×2 (09:48→10:06)
[2020-03-03] MEDS ORDERED: MIDAZOLAM DRIP 50 mg/50mL 50 ML IV ONE (09:49)
[2020-03-03] MEDS ORDERED: fentaNYL Drip 2500mCg/250mlNS 250 ML IV ONE (09:49)
[2020-03-03] MEDS: PANTOPRAZOLE 40 MG/10 ML VIAL INJ IV SCH (09:55)
[2020-03-03] MEDS: DexAMETHasone SOD PHOS 10MG/1ML VIAL INJ IV SCH (09:55)
[2020-03-03] MEDS: ZINC SULFATE 220mg CAP or TAB PO SCH (09:55)
[2020-03-03] MEDS: ASCORBIC ACID 1,000 MG TAB PO SCH (09:55)
[2020-03-03] MEDS: METOPROLOL TARTRATE 25 MG TAB PO SCH (09:56)
[2020-03-03] MEDS: CHOLECALCIFEROL (VITD3) 2,000 UNIT CAP PO SCH (09:57)
[2020-03-03] MEDS ORDERED: MIDAZOLAM DRIP 50 mg/50mL 50 ML IV SCH (10:00)
[2020-03-03] MEDS ORDERED: fentaNYL Drip 2500mCg/250mlNS 250 ML IV SCH (10:00)
--- NOTE | 2020-03-03 10:03 | NUR ---
DR MCCLURE AND RT SUSAN[facility]. PT MEDICATED WITH ETOMIDATE 20 AND VERSED 5 VIA IV . Addendum: 03/03/20 at 1147 by Isabela Michel RN EDUARDO, RT LB.
--- NOTE | 2020-03-03 10:06 | NUR ---
PT MEDICATED WITH SUCCINYLCHOLINE 80 FOR INTUBATION.
--- NOTE | 2020-03-03 10:08 | NUR ---
PT SUCCESSFULLY INTUBATED WITH 8 FR ETT/24 AT THE LIP, AC 16, TV 550, 100% FIO2 AND PEEP OF 5. LUNGS CLEAR AND DIMINISHED THROUGHOUT.
--- NOTE | 2020-03-03 10:09 | NUR ---
PT WITH HR DOWN TO 35 AND CODE BLUE CALLED AT 1010
--- NOTE | 2020-03-03 10:10 | NUR ---
Respiratory note: PATIENT INTUBATED BY DR. MCCLURE, ON FIRST ATTEMPT, WITH AN 8.0 ETT. POSITIVE COLOR CHANGE SEEN ON CO2 DETECTOR, BILATERAL BREATH SOUNDS WERE HEARD, AND CONDENSATION WAS SEEN IN THE TUBE. ETT WAS SECURED VIA SRINIVASAN AT THE 24CM MARKING AT THE LIP, AND HE WAS PLACED ON MECHANICAL VENT WITH THE FOLLOWING ORDERED SETTINGS: AC 16, 550, +5, 100% PATIENT BEGAN TO ARNULFO DOWN AND CODED. CPR BEGAN.
--- NOTE | 2020-03-03 10:14 | NUR ---
FAMILY CALLED TO NOTIFY OF CODE BLUE. FAMILY ON WAY.
--- NOTE | 2020-03-03 10:16 | NUR ---
PULSE CHECK AND ROSC.
--- NOTE | 2020-03-03 10:30 | NUR ---
PT SEDATED AFTER INTUBATION AND RESTRAINT TO THE RIGHT WRIST DC';Nora.
--- NOTE | 2020-03-03 10:34 | NUR ---
FAMILY FAMILY IN UNIT. DR. MCCLURE UPDATED FAMILY ON PATIENTS POOR CONDITION.
[2020-03-03] MEDS ORDERED: EPINEPHrine HCL 250 ML IV ONE (10:37)
[2020-03-03] MEDS ORDERED: EPINEPHrine HCL 250 ML IV SCH (10:45)
[2020-03-03] MEDS ORDERED: NOREPINEPHRINE 8 MG/250ML KIT 250 ML IV ONE (10:46)
--- NOTE | 2020-03-03 11:05 | NUR ---
STARTED ON EPINEPHRINE DRIP
[2020-03-03 11:14] LABS: Hematocrit 20.3 % (41.0-53.0)
[2020-03-03 11:15] LABS: Mean Corpuscular Hemoglobin 28.1 pg (28.0-32.0); Mean Corpuscular Hgb Conc. 30.7 g/dL (32.0-36.0); Mean Corpuscular Volume 91.5 fL (80.0-100.0); Platelet Count (auto) 225 10^3/uL (140-450); Red Blood Cells 2.22 10^6/uL (4.5-5.90); Red Cell Distribution Width 16.3 % (11.8-14.3); White Blood Cell 29.9 10^3/uL (4.4-10.8)
[2020-03-03 11:20] LABS: Basophils % (manual) 0 (0.0-2.0); Blast Cells 0; Eosinophils % (manual) 0 (0-7); Hemoglobin 6.2 g/dL (13.5-17.5); Myelocytes % 0; Promyelocytes % 0; Reactive Lymphocytes 0
--- NOTE | 2020-03-03 11:20 | NUR ---
PLASMA OBTAINED FROM BLOOD BANK. FAMILY HAS DECIDED TO WITHDRAWAL CARE AT THIS TIME, MD STATING TO HOLD AT THIS TIME. PLASMA RETURNED.
--- NOTE | 2020-03-03 11:21 | NUR ---
CRITICAL HBG 6.3. MD AWARE. NO FURTHER ORDERS.
[2020-03-03 11:33] LABS: BUN/Creatinine Ratio 19.6; Magnesium 2.2 mg/dL (1.6-2.6); Potassium 4.3 mmol/L (3.5-5.1)
--- NOTE | 2020-03-03 11:48 | NUR ---
PT WITH ASYSTOLE AND DR MCCLURE TO THE BEDSIDE AND PT PRONOUNCED.
--- NOTE | 2020-03-03 11:50 | NUR ---
Respiratory note: PATIENT TOD CALLED AND PRONOUNCED BY DR. MCCLURE. PATIENT DISCONNECTED FROM VENT AT THIS TIME PER DR. MCCLURE'S ORDER.
[2020-03-03 11:55] LABS: INR 1.33 (0.9-1.15)
[2020-03-03 11:56] LABS: Partial Thromboplastin Time > 139.0 sec (23.0-31.2)
--- NOTE | 2020-03-03 12:10 | NUR ---
[facility] CALLED AND REPORTED PT'S TO [facility] AND BASED ON PT'S CONDITION AND HISTORY , HE WILLNOT BE A CANDIDATE FOR DONATION AND IS OKAY TO RELEASE APPROPRIATE. Addendum: 03/03/20 at 1220 by Isabela Michel RN CASE # [id number]
--- NOTE | 2020-03-03 12:12 | NUR ---
CALLED THE CORONERS OFFICE TO REPORT THE PT'S . THEY WILL HAVE THE FORMING ROLL OPERATOR HEAVY DUTY CALL BACK.
[2020-03-03 12:41] LABS: Band Neutrophils % (manual) 4; Lymphocytes % (manual) 18 (10.0-50.0); Metamyelocytes % 2; Monocytes % (manual) 6 (0-12)
--- NOTE | 2020-03-03 13:24 | NUR ---
[facility] [employer] [employer] RECEIVED A PHONE CALL FROM THE RAILS DEVELOPER'S OFFICE. I PROVIDED REQUESTED INFORMATION. OKAY TO RELEASE THE BODY TO THE MORTUARY OF FAMILY'S CHOICE. VERNON BHATTI
[2020-03-03] MEDS ORDERED: CALCIUM CHLOR(10%) 100MG/ML 10ML SYRINGE IV ONE (15:29)
[2020-03-03] MEDS ORDERED: SODIUM BICARBONATE 8.4% INJ 50ML SYRINGE IV ONE (15:29)
[2020-03-03] MEDS ORDERED: ATROPINE SULF 1 MG/10ml SYR IV ONE (15:29)
[2020-03-03] MEDS ORDERED: EPINEPHrine HCL 1 MG/10 ML SYRG IV ONE (15:29)
--- NOTE | 2020-03-03 16:56 | NUR ---
PT OUT VIA GURNEY UNDER THE CARE OF AFFORDABLE CREMATION. PT'S ONLY BELONGINGS WERE A PAIR OF SHOES THAT WERE GIVEN TO HIS DAUGHTER IN LAW.
[2020-03-04] MEDS ORDERED: SODIUM CHL 0.9% 1000 ML BAG XX ONE (07:00)
== END 2020-03-03 02:00 | disposition expired | DRG 720 ==
LOC: ER 03:32 → TELE 03:33 → TELE-EAST 10:52 → EAST 13:26 → ICU WEST 03-02 21:28
PROVIDERS: ADMIT Hospitalist; ATTEND Hospitalist
PROC: 5A12012 Performance of Cardiac Output, Single, Manual (ICD-10-PCS; principal; 2020-03-01)
PROC: 30233N1 Transfusion of Nonautologous Red Blood Cells into Peripheral Vein, Percutaneous Approach (ICD-10-PCS; 2020-03-02)
PROC: XW13325 Transfusion of Convalescent Plasma (Nonautologous) into Peripheral Vein, Percutaneous Approach, New Technology Group 5 (ICD-10-PCS; 2020-03-02)
PROC: 06HM33Z Insertion of Infusion Device into Right Femoral Vein, Percutaneous Approach (ICD-10-PCS; 2020-03-02)
PROC: 4A143B0 Monitoring of Venous Pressure, Central, Percutaneous Approach (ICD-10-PCS; 2020-03-02)
PROC: 5A1935Z Respiratory Ventilation, Less than 24 Consecutive Hours (ICD-10-PCS; 2020-03-03)
PROC: 0BH17EZ Insertion of Endotracheal Airway into Trachea, Via Natural or Artificial Opening (ICD-10-PCS; 2020-03-03)
DX: A41.89 Other specified sepsis (principal); U07.1 COVID-19; N17.9 Acute kidney failure, unspecified; E87.5 Hyperkalemia; J44.1 Chronic obstructive pulmonary disease with (acute) exacerbation; D63.1 Anemia in chronic kidney disease; E11.22 Type 2 diabetes mellitus with diabetic chronic kidney disease; I50.33 Acute on chronic diastolic (congestive) heart failure; E11.40 Type 2 diabetes mellitus with diabetic neuropathy, unspecified; E43 Unspecified severe protein-calorie malnutrition; E66.01 Morbid (severe) obesity due to excess calories; E78.5 Hyperlipidemia, unspecified; J96.21 Acute and chronic respiratory failure with hypoxia; K75.9 Inflammatory liver disease, unspecified; K76.0 Fatty (change of) liver, not elsewhere classified; N18.4 Chronic kidney disease, stage 4 (severe); I13.0 Hypertensive heart and chronic kidney disease with heart failure and stage 1 through stage 4 chronic kidney disease, or unspecified chronic kidney disease; J44.0 Chronic obstructive pulmonary disease with (acute) lower respiratory infection; J12.89 Other viral pneumonia; K92.2 Gastrointestinal hemorrhage, unspecified; D65 Disseminated intravascular coagulation [defibrination syndrome]; E11.319 Type 2 diabetes mellitus with unspecified diabetic retinopathy without macular edema; I21.A1 Myocardial infarction type 2; Z68.43 Body mass index [BMI] 50.0-59.9, adult; Z82.49 Family history of ischemic heart disease and other diseases of the circulatory system; Z83.3 Family history of diabetes mellitus; Z87.891 Personal history of nicotine dependence; Z91.14 Patient's other noncompliance with medication regimen
CPT/HCPCS: 36415; 36600; 70450; 71045; 73560; 73600; 76775; 80048; 80053; 80061; 80307; 81001; 82306; 82570; 82728; 82805; 82962; 83605; 83615; 83735; 83880; 83970; 84100; 84132; 84156; 84300; 84443; 84484; 85007; 85025; 85027; 85379; 85610; 85730; 86141; 86850; 86900; 86901; 86920; 87040; 87086; 87426; 90935; 92950; 93005; 94002; 94640; 96361; 96365; 96366; 96367; 96375; A4565; A4618; C9113; G0378; J0171; J0330; J0610; J0885; J1100; J1642; J1815; J2250; J3490; J7060